=== PATIENT | male | born 1995 | race Caucasian/White ===

== ENCOUNTER 2018-07-09 20:53 | Emergency (ER) | payer MEDICAID ==
[2018-07-09 21:10] VITALS: BP 141/83
[2018-07-09] MEDS ORDERED: FAMOTIDINE 20 MG TAB PO ONE (21:17)
--- NOTE | 2018-07-09 21:18 | EDPHY ---
H & P Stated Complaint: C/O UPPER ABD PAIN X 7 DAYS- DENIES N/V Time Seen by Provider: 07/09/18 21:11 HPI/ROS: CHIEF COMPLAINT: Heartburn HISTORY OF PRESENT ILLNESS: Patient is a 22-year-old overweight man who comes to the emergency department complaining of heartburn symptoms for the last week as well as epigastric pain that is now resolved. He states that his symptoms did improve with Tums. He missed work for 5 days because of his heartburn symptoms. He went back to work today and they told him that he needed a note or he would be fired. He originally presented to the urgent care but they told him to come to the ER because they do not have any imaging availability. He has not had a fever. No vomiting. He did have 1 episode of nonbloody diarrhea that was several days ago. Normal bowel movement since then. No shortness of breath. Severity: Mild Modifying factors: Resolved with Tums REVIEW OF SYSTEMS: Constitutional: denies: chills, fever, recent illness, recent injury EENTM: denies: blurred vision, double vision, nose congestion Respiratory: denies: cough, shortness of breath Cardiac: denies: chest pain, irregular heart rate, lightheadedness, palpitations Gastrointestinal/Abdominal: See HPI Genitourinary: denies: dysuria, frequency, hematuria, pain Musculoskeletal: denies: joint pain, muscle pain Skin: denies: lesions, rash, jaundice, bruising Neurological: denies: headache, numbness, paresthesia, tingling, dizziness, weakness Hematologic/Lymphatic: denies: blood clots, easy bleeding, easy bruising Immunologic/allergic: denies: HIV/AIDS, transplant 10 systems reviewed and negative except as noted EXAM: GENERAL: Well-appearing, overweight and in no acute distress. HEAD: Atraumatic, normocephalic. EYES: Pupils equal round and reactive to light, extraocular movements intact, sclera anicteric, conjunctiva are normal. ENT: TMs normal, nares patent, oropharynx clear without exudates. Moist mucous membranes. NECK: Normal range of motion, supple without lymphadenopathy or JVD. LUNGS: Breath sounds clear to auscultation bilaterally and equal. No wheezes rales or rhonchi. HEART: Regular rate and rhythm without murmurs, rubs or gallops. ABDOMEN: Soft, nontender, normoactive bowel sounds. No guarding, no rebound. No masses appreciated. BACK: No CVA tenderness, no spinal tenderness, step-offs or deformities EXTREMITIES: Normal range of motion, no pitting or edema. No clubbing or cyanosis. NEUROLOGICAL: Cranial nerves II through XII grossly intact. Normal speech, normal gait. 5/5 strength, normal movement in all extremities, normal sensation , normal reflexes PSYCH: Normal mood, normal affect. SKIN: Warm, dry, normal turgor, no visible rashes or lesions. Source: Patient Exam Limitations: No limitations - Personal History Current Tetanus Diphtheria and Acellular Pertussis (TDAP): Yes - Medical/Surgical History Hx Asthma: No Hx Chronic Respiratory Disease: No Hx Diabetes: No Hx Cardiac Disease: No Hx Renal Disease: No Hx Cirrhosis: No Hx Alcoholism: No Other PMH: DEPRESSION - Family History Significant Family History: No pertinent family hx - Social History Smoking Status: Never smoked Alcohol Use: None Constitutional: Initial Vital Signs Temperature (C) 36.6 C 07/09/18 21:08 Heart Rate 84 07/09/18 21:08 Respiratory Rate 20 07/09/18 21:08 Blood Pressure 141/83 H 07/09/18 21:08 O2 Sat (%) 94 07/09/18 21:08 O2 Delivery Mode Room Air Allergies/Adverse Reactions: amoxicillin Allergy (Intermediate, Verified 05/24/12 16:45) Hives Penicillins Allergy (Verified 05/24/12 17:16) Hives Home Medications: Medication Instructions Recorded ESCITALOPRAM OXALATE [LEXAPRO] 5 mg DAILY 05/24/12 Multivitamins [Multivitamin (OTC)] 05/24/12 buPROPion SR [Wellbutrin 150mg SR 300 mg 05/24/12 (RX)] Famotidine [Pepcid] 40 mg PO HS #30 tablet 07/09/18 Medical Decision Making ED Course/Re-evaluation: The patient's abdominal exam is benign. He is currently asymptomatic after taking Tums yesterday and the day before. He never had any lower abdominal pain. We discussed options including starting him on an antacid and treating expectantly verses lab work and imaging tonight. The patient does not wish to have any imaging or lab work done tonight. He is primarily requesting a note for work. We discussed differential and indications for returning to the emergency department. I will also refer him to GI. Differential Diagnosis: Partial list of the Differential diagnosis considered include but were not limited to; peptic ulcer disease, GERD and although unlikely based on the history and physical exam, I also considered dissection, biliary disease, acute coronary disease, appendicitis. I discussed these differential diagnoses and the plan with the [patient] as well as the usual and expected course. The [ patient understands] that the diagnosis is provisional and that in medicine we are not always correct and that further workup is often warranted. Usual and customary warnings were given. All of the [patient's] questions were answered. The [patient was] instructed to return to the emergency department should the symptoms at all worsen or return, otherwise to followup with the physician as we discussed. - Data Points Medications Given: Discontinued Medications Famotidine (Pepcid) 40 mg PO EDNOW ONE Stop: 07/09/18 21:18 Last Admin: 07/09/18 21:23 Dose: 40 mg Departure - Departure Disposition: Home, Routine, Self-Care Clinical Impression: GERD (gastroesophageal reflux disease) Condition: Fair Instructions: Gastroesophageal Reflux Disease (ED) Referrals: Alfa Tarango MD [Medical Doctor] - 5-7 days, if not improved Butch Shea MD [Primary Care Provider] - 2-3 days, if not improved Stand Alone Forms: Work Excuse Prescriptions: Famotidine [Pepcid] 40 mg PO HS #30 tablet
== END 2018-07-09 21:28 | disposition home or self-care (01) ==
LOC: CED 20:53
DX: K21.9 Gastro-esophageal reflux disease without esophagitis (principal)
CPT/HCPCS: 99283-ER